=== PATIENT | female | born 1970 | race Caucasian/White ===

== ENCOUNTER 2017-01-06 22:35 | Emergency (ER) | payer BC ==
[~2017-01-06 22:35] MED LIST: ASPIR LOW81 MG PO; IBUPROFEN200 M1 PO; NORCO 325 MG-51 TAB PO; NORFLEX100 MG PO; TOPROL XL100 MG PO; TUMS ULTRA ST1000 MG PO
[2017-01-06] MEDS ORDERED: PERCOCET 325 MG1 TA2 PO (23:53)
== END 2017-01-07 00:03 | disposition home or self-care (01) ==
LOC: ED 22:35
DX: M25.561 Pain in right knee (principal); Z87.828 Personal history of other (healed) physical injury and trauma
CPT/HCPCS: L1830

== ENCOUNTER → 2017-04-20 | Outpatient (CLI) | payer BC ==
[2017-01-06 22:07] VITALS: BP 168/107
[~2017-04-20] MED LIST changes: +PERCOCET 325 MG1 TA2 PO
== END ==
LOC: RAD 14:35
DX: R22.31 Localized swelling, mass and lump, right upper limb (principal); M79.642 Pain in left hand; M25.511 Pain in right shoulder; M25.532 Pain in left wrist

== ENCOUNTER → 2017-10-17 | Outpatient (CLI) | payer BC ==
[2017-01-06 22:07] VITALS: BP 168/107
== END ==
LOC: RAD 16:11
DX: M17.11 Unilateral primary osteoarthritis, right knee (principal)

== ENCOUNTER 2021-07-13 20:14 | Emergency (ER) | payer BC ==
[~2021-07-13] VITALS: Ht 167.6 cm; Wt 91.8 kg
[2021-07-13] MEDS ORDERED: LEXAPRO 10MG10 MG PO (22:48)
[2021-07-13] MEDS ORDERED: ADIPEX-P37.5 MG (22:49)
[2021-07-13 23:51] LABS: BASO # 0.05 K/mm3 (0.02-0.10); EOS # 0.25 K/mm3 (0.04-0.40); EOS % 1.5 % (1.0-5.0); HEMATOCRIT 41.6 % (37.0-47.0); HEMOGLOBIN 13.5 g/dL (12.5-16.0); LYMPH# 2.56 K/mm3 (1.50-4.00); MEAN CELL VOLUME 88 fl (78-100); MEAN CORPUSCULAR HEMOGLOBIN 29 pg (27-31); MEAN CORPUSCULAR HGB CONC 33 g/dL (33-37); MEAN PLATELET VOLUME 8.9 fl (7.4-10.4); MONO # 1.19 K/mm3 (0.20-0.80); NEU # 12.55 K/mm3 (1.40-6.50); PLATELET COUNT 287 K/mm3 (130-400); RED BLOOD COUNT 4.73 M/mm3 (4.10-5.30); RED CELL DISTRIBUTION WIDTH 12.6 % (11.5-14.5); WHITE BLOOD COUNT 16.6 K/mm3 (4.8-10.8)
[2021-07-13 23:55] LABS: ALBUMIN 3.5 g/dL (3.5-5.0)
[2021-07-13 23:56] LABS: CALCIUM 9.4 mg/dL (8.3-10.5)
[2021-07-13 23:57] LABS: TOTAL PROTEIN 6.9 g/dL (6.4-8.3)
[2021-07-13 23:59] LABS: TOTAL BILIRUBIN 0.2 mg/dL (0.2-1.2)
[2021-07-14 00:50] LABS: CLUE CELLS NOT OBSERVED (Not Observd)
[2021-07-14 00:51] LABS: GRAM STAIN AMS
[2021-07-14 01:17] LABS: URINE APPEARANCE HAZY; URINE COLOR YELLOW
[2021-07-14 01:18] LABS: URINE BILIRUBIN NEGATIVE (NEGATIVE); URINE BLOOD TRACE (NEGATIVE); URINE GLUCOSE NEGATIVE (NEGATIVE); URINE KETONE NEGATIVE (NEGATIVE); URINE LEUKOCYTE ESTERASE TRACE (NEGATIVE); URINE NITRATE NEGATIVE (NEGATIVE); URINE PROTEIN(semi-quant) NEGATIVE (NEGATIVE); URINE UROBILINOGEN NORMAL (NORMAL)
[2021-07-14 05:30] VITALS: BP 118/72
== END 2021-07-14 05:37 | disposition home or self-care (01) ==
LOC: ED 20:14
PROVIDERS: Nurse Practitioner Family
DX: N76.0 Acute vaginitis (principal); D72.829 Elevated white blood cell count, unspecified; I10 Essential (primary) hypertension; Z90.710 Acquired absence of both cervix and uterus; Z87.891 Personal history of nicotine dependence; Z79.899 Other long term (current) drug therapy
CPT/HCPCS: J0696; J2270; J3490; J7030; Q0111; Q9967

== ENCOUNTER 2021-10-04 19:23 | Emergency (ER) | payer BC ==
[~2021-10-04] VITALS: Ht 167.6 cm; Wt 92.3 kg
[~2021-10-04 19:23] MED LIST changes: +ADIPEX-P37.5 MG PO; +LEXAPRO 10MG10 MG PO
[2021-10-04] MEDS ORDERED: TOPROL XL 50MG50 MG PO (19:33)
[2021-10-04] MEDS ORDERED: MOBIC15 M1 PO (19:35)
[2021-10-04 20:20] LABS: BASO # 0.05 K/mm3 (0.02-0.10); EOS # 0.17 K/mm3 (0.04-0.40); EOS % 1.8 % (1.0-5.0); HEMATOCRIT 41.2 % (37.0-47.0); HEMOGLOBIN 13.6 g/dL (12.5-16.0); LYMPH# 2.62 K/mm3 (1.50-4.00); MEAN CELL VOLUME 86 fl (78-100); MEAN CORPUSCULAR HEMOGLOBIN 29 pg (27-31); MEAN CORPUSCULAR HGB CONC 33 g/dL (33-37); MONO # 0.62 K/mm3 (0.20-0.80); PLATELET COUNT 323 K/mm3 (130-400); RED BLOOD COUNT 4.77 M/mm3 (4.10-5.30); WHITE BLOOD COUNT 9.6 K/mm3 (4.8-10.8)
[2021-10-04 20:27] LABS: POTASSIUM 3.7 mmol/L (3.5-5.1)
[2021-10-04 20:28] LABS: CALCIUM 9.7 mg/dL (8.3-10.5)
[2021-10-04 20:29] LABS: TOTAL PROTEIN 7.2 g/dL (6.4-8.3)
[2021-10-04 20:31] LABS: TOTAL BILIRUBIN 0.5 mg/dL (0.2-1.2)
[2021-10-04 21:00] VITALS: BP 132/79
== END 2021-10-04 21:00 | disposition home or self-care (01) ==
LOC: ED 19:23
PROVIDERS: Nurse Practitioner
DX: F41.9 Anxiety disorder, unspecified (principal); F12.90 Cannabis use, unspecified, uncomplicated; Z87.891 Personal history of nicotine dependence